=== PATIENT | male | born 1990 | race Caucasian/White ===

== ENCOUNTER 2020-01-14 16:53 | Emergency (ER) | payer SELFPAY ==
[2020-01-14] MEDS ORDERED: Lidocaine 1% 10 ML MDV INJECT ONE (17:43)
[2020-01-14] MEDS ORDERED: Cephalexin 500 MG Cap PO ONE (18:35)
--- NOTE | 2020-01-14 18:38 | EDM.PDOC ---
ED HPI GENERAL MEDICAL PROBLEM - General Chief Complaint: General Stated Complaint: PIECE OF WOOD STUCK IN LF ARM Time Seen by Provider: 01/14/20 17:33 Source of Information: Reports: Patient, RN Notes Reviewed - History of Present Illness INITIAL COMMENTS - FREE TEXT/NARRATIVE: working with a beehive, somehow got a wooden splinter into L forearm, unable to get it out. Left Middle Arm Pain Score (Numeric/FACES): 4 - Related Data Allergies Allergy/AdvReac Type Severity Reaction Status Date / Time No Known Allergies Allergy Verified 01/14/20 17:32 Home Meds: Home Meds atenoloL [Atenolol] 25 mg PO BID 01/14/20 [History] cephALEXin [Cephalexin] 500 mg PO QID #20 capsule 01/14/20 [Rx] Past Medical History Cardiovascular History: Reports: Hypertension, Other (See Below) Other Cardiovascular History: leaky heart valve Social & Family History - Tobacco Use Smoking Status *Q: Current Every Day Smoker Years of Tobacco use: 8 Packs/Tins Daily: 0.5 - Caffeine Use Caffeine Use: Reports: Coffee, Soda - Recreational Drug Use Recreational Drug Use: No ED ROS GENERAL - Review of Systems Review Of Systems: See Below HEENT: Reports: No Symptoms Respiratory: Reports: No Symptoms Cardiovascular: Reports: No Symptoms GI/Abdominal: Reports: No Symptoms Musculoskeletal: Reports: Other (Mild discomfort area of wooden splinter) Neurological: Denies: Numbness, Tingling, Weakness ED EXAM, GENERAL - Physical Exam Exam: See Below General Appearance: Alert, No Apparent Distress Head: Atraumatic Respiratory/Chest: No Respiratory Distress Extremities: Other (mild fulness to antecubital area of L forearm, fullness palpable lateral to entrance point visible) Neurological: Alert, No Motor/Sensory Deficits Skin Exam: Warm, Dry Foreign Body Removal - Pre-Procedure Indication: wooden splinter broke off antecubital area L forearm Performing Doctor:: Edwin Hand - Post-Procedure Findings:: FB palpable SQ tissue of L antecubital area L forearm, entrance wound visible, I did have to open this up with a scalpal after local anesth. with 1 % lidocaine. 2 cm long wooden splinter located, removed without difficulty. 4 ethilons sutures used to close the wound. Complications:: No Course - Vital Signs Last Recorded V/S: Last Vital Signs Temp 98.7 F 01/14/20 17:27 Pulse 68 01/14/20 17:27 Resp 20 01/14/20 17:27 BP 133/86 01/14/20 17:27 Pulse Ox 99 01/14/20 17:27 - Orders/Labs/Meds Meds: Medications Discontinued Medications Generic Name Dose Route Start Last Admin Trade Name Parmjit PRN Reason Stop Dose Admin Cephalexin 500 mg 01/14/20 18:35 01/14/20 18:45 Keflex PO 01/14/20 18:36 500 mg ONETIME ONE Administration Lidocaine HCl 10 ml 01/14/20 17:43 01/14/20 17:48 Xylocaine 1% INJECT 01/14/20 17:44 10 ml ONETIME ONE Administration - Re-Assessments/Exams Free Text/Narrative Re-Assessment/Exam: 01/15/20 13:56 was able to find a remove wooden splinter as documented, it was in the sub cut. tissue, had to incise down about 1/4 to 1/2 cm to find it. Departure - Departure Time of Disposition: 18:36 Disposition: Home, Self-Care 01 Condition: Fair Clinical Impression: Foreign body (FB) in soft tissue - Discharge Information Prescriptions: cephALEXin [Cephalexin] 500 mg PO QID #20 capsule Referrals: PCP,None [Primary Care Provider] - Forms: ED Department Discharge Additional Instructions: cephalexin 500 mg 4 times daily for 5 days or until gone. Prescription has been sent to [facility]. Stitches out in about 10 days, have rechecked any sign of infection. Sepsis Event Note (ED) - Evaluation Sepsis Screening Result: No Definite Risk
== END 2020-01-14 18:50 | disposition home or self-care (01) ==
LOC: JD.ED 16:53
DX: S50.852A Superficial foreign body of left forearm, initial encounter (principal); I10 Essential (primary) hypertension; F17.210 Nicotine dependence, cigarettes, uncomplicated; W45.8XXA Other foreign body or object entering through skin, initial encounter
CPT/HCPCS: 10120; 99283; A9270; J2001; 99282

== ENCOUNTER 2022-11-02 08:11 | Day surgery (SDC) | payer BC ==
[2022-11-02 09:02] LABS: BASOPHILS ABSOLUTE AUTO 0.03 K/mm3 (0.01-0.08); BASOPHILS PERCENT AUTO 0.4 % (0.1-1.2); EOSINOPHILS ABSOLUTE AUTO 0.36 K/mm3 (0.04-0.54); EOSINOPHILS PERCENT AUTO 4.9 (0.8-7.0); HEMATOCRIT 50.1 % (40.1-51.0); HEMOGLOBIN 17.3 gm/dl (13.7-17.5); IMMATURE GRAN ABSOLUTE AUTO 0.06 K/mm3 (0.00-0.10); IMMATURE GRAN PERCENT AUTO 0.8 % (<=1.0); LYMPHOCYTES ABSOLUTE AUTO 2.49 K/mm3 (1.32-3.57); LYMPHOCYTES PERCENT AUTO 34.2 % (21.8-53.1); MEAN CORPUSCULAR HEMOGLOBIN 32.2 pg (25.7-32.2); MEAN CORPUSCULAR HGB CONC 34.5 g/dl (32.2-35.5); MEAN CORPUSCULAR VOLUME 93.1 fl (79.0-92.2); MEAN PLATELET VOLUME 9.7 fl (9.4-12.3); MONOCYTES PERCENT AUTO 8.2 % (5.3-12.2); NEUTROPHILS ABSOLUTE AUTO 3.74 K/mm3 (1.78-5.38); NEUTROPHILS PERCENT AUTO 51.5 % (34.0-67.9); PLATELET COUNT,PLT 287 K/mm3 (163-337); RED BLOOD CELL COUNT 5.38 M/mm3 (4.63-6.08); WHITE BLOOD CELL COUNT,WBC 7.28 K/mm3 (4.23-9.07)
[2022-11-02 09:15] LABS: INR 0.95; PROTHROMBIN TIME 10.2 SECONDS (9.7-12.0)
[2022-11-02 09:19] LABS: APPEARANCE,URINE CLEAR (Clear); BILIRUBIN,URINE NEGATIVE (Negative); COLOR,URINE YELLOW (Yellow); GLUCOSE,URINE NEGATIVE (Negative); KETONES,URINE NEGATIVE (Negative); LEUKOCYTE ESTERASE,URINE NEGATIVE (Negative); NITRITE,URINE NEGATIVE (Negative); OCCULT BLOOD,URINE NEGATIVE (Negative); PROTEIN,URINE TRACE (Negative); UROBILINOGEN,URINE 0.2 (0.2-1.0)
[2022-11-02 09:30] LABS: A/G RATIO 0.9 (1-2); BILIRUBIN TOTAL 0.5 mg/dL (0.2-1.0); BUN/CREATININE RATIO 15.5 (14-18); CALCIUM 9.4 mg/dL (8.5-10.1); CKMB 2.8 ng/ml (0-3.6); CREATININE 1.1 mg/dL (0.7-1.3); EST CRCL DRUG DOSING (CG) 106.94 mL/min; PROTEIN TOTAL,TP 8.4 g/dl (6.4-8.2)
[2022-11-02 10:03] LABS: RBC,URINE 0-5 /hpf (0-5)
[2022-11-02 10:04] LABS: BACTERIA,URINE FEW /hpf (FEW); EPITHELIAL CELLS,URINE NOT SEEN /hpf (0-5); MUCUS,URINE MANY /hpf (FEW); WBC,URINE NOT SEEN /hpf (0-5)
[2022-11-02] MEDS ORDERED: Ondansetron 4 MG/2 ML SDV IVPUSH PRN (12:06)
[2022-11-02] MEDS ORDERED: fentaNYL 100 MCG/2 ML SDV IVPUSH PRN (12:06)
[2022-11-02] MEDS ORDERED: HYDROmorphone 0.5 MG/0.5 ML Syringe IVPUSH PRN (12:06)
[2022-11-02] MEDS ORDERED: Propofol 200 MG/20 ML SDV ONE (12:14)
[2022-11-02] MEDS ORDERED: Lidocaine 1% 2 ML ONE (12:14)
[2022-11-02] MEDS ORDERED: Rocuronium 50 MG/5 ML Vial ONE (12:14)
[2022-11-02] MEDS ORDERED: fentaNYL 250 MCG/5 ML SDV ONE (12:14)
[2022-11-02] MEDS ORDERED: Ketorolac 30 MG/ML SDV ONE (12:15)
[2022-11-02] MEDS ORDERED: Ondansetron 4 MG/2 ML SDV ONE (12:15)
[2022-11-02] MEDS ORDERED: Bupivacaine 0.5%/EPINEPHrine 1:200,000 50 ML MDV ONE (12:49)
[2022-11-02] MEDS ORDERED: Lidocaine 1% 30 ML SDV ONE (12:49)
[2022-11-02] MEDS ORDERED: ceFAZolin 2 GM Vial ONE ×2 (13:43)
[2022-11-02] MEDS ORDERED: Sugammadex Sodium 200 MG/2 ML VIAL ONE (13:56)
[2022-11-02] MEDS ORDERED: oxyCODONE 5 MG Tab PO ONE (15:09)
== END 2022-11-02 15:40 | disposition home or self-care (01) ==
LOC: JD.ED 08:11 → JD.SDS 10:06
PROVIDERS: ATTEND Surgery
DX: K42.0 Umbilical hernia with obstruction, without gangrene (principal); I10 Essential (primary) hypertension; F17.210 Nicotine dependence, cigarettes, uncomplicated; E66.01 Morbid (severe) obesity due to excess calories; Z79.899 Other long term (current) drug therapy; Z79.82 Long term (current) use of aspirin; Z68.41 Body mass index [BMI] 40.0-44.9, adult
CPT/HCPCS: 36415; 49614; 71045; 74176; 80053; 81001; 82553; 84484; 85025; 85610; 85730; 86850; 86900; 86901; 93005; A9270; J0690; J1885; J2405; J2704; J3010; J3490; 99284

== ENCOUNTER 2023-02-11 22:56 | Emergency (ER) | payer BC | END 2023-02-11 23:20 | disposition left against medical advice (07) | LOC: JD.ED 22:56 | DX: Z53.21 Procedure and treatment not carried out due to patient leaving prior to being seen by health care provider (principal) ==

== ENCOUNTER 2023-10-03 04:53 | Emergency (ER) | payer BC ==
[2023-10-03] MEDS: Sodium Chloride 0.9% 10 ML Syringe FLUSH PRN (05:11)
[2023-10-03 05:43] LABS: BASOPHILS PERCENT AUTO 0.6 % (0.0-1.0); EOSINOPHILS ABSOLUTE AUTO 0.2 K/mm3 (0.0-0.4); EOSINOPHILS PERCENT AUTO 4.6 % (0.0-6.0); HEMATOCRIT 47.8 % (42.0-52.0); HEMOGLOBIN 16.2 gm/dl (14.0-18.0); IMMATURE GRAN ABSOLUTE AUTO 0.02 K/mm3 (0.00-0.05); IMMATURE GRAN PERCENT AUTO 0.4 % (0.0-0.4); LYMPHOCYTES ABSOLUTE AUTO 2.1 K/mm3 (1.0-4.8); LYMPHOCYTES PERCENT AUTO 40.2 % (24.0-44.0); MEAN CORPUSCULAR HEMOGLOBIN 31.6 pg (28.0-32.0); MEAN CORPUSCULAR HGB CONC 33.9 g/dl (32.0-36.0); MEAN CORPUSCULAR VOLUME 93.4 fl (83.0-99.0); MEAN PLATELET VOLUME 9.3 fl (9.4-12.4); MONOCYTES ABSOLUTE AUTO 0.4 K/mm3 (0.0-0.8); MONOCYTES PERCENT AUTO 6.9 % (0.0-8.0); NEUTROPHILS ABSOLUTE AUTO 2.5 K/mm3 (1.8-7.7); NEUTROPHILS PERCENT AUTO 47.3 % (41.0-71.0); PLATELET COUNT,PLT 201 K/mm3 (150-400); RED BLOOD CELL COUNT 5.12 M/mm3 (4.52-5.90); WHITE BLOOD CELL COUNT,WBC 5.22 K/mm3 (3.9-11.3)
[2023-10-03 05:59] LABS: A/G RATIO 0.8 (1-2); ALBUMIN 3.2 g/dl (3.4-5.0); ANION GAP 10.9 (5-15); BILIRUBIN TOTAL 0.4 mg/dL (0.2-1.0); BUN/CREATININE RATIO 16.7 (14-18); C-REACTIVE PROTEIN 0.39 mg/dL (<0.30); CALCIUM 8.5 mg/dL (8.5-10.1); CREATININE 0.9 mg/dL (0.7-1.3); EST CRCL DRUG DOSING (CG) 140.65 mL/min; MAGNESIUM 1.9 mg/dL (1.8-2.4); POTASSIUM,K 3.9 mEq/L (3.5-5.1)
[2023-10-03] MEDS: Albuterol 6.7 GM Inhaler INH ONE (07:35)
== END 2023-10-03 07:39 | disposition home or self-care (01) ==
LOC: JD.ED 04:53
DX: B34.9 Viral infection, unspecified (principal); R07.89 Other chest pain; I10 Essential (primary) hypertension; E66.9 Obesity, unspecified; Z79.899 Other long term (current) drug therapy; Z79.82 Long term (current) use of aspirin; Z68.35 Body mass index [BMI] 35.0-35.9, adult
CPT/HCPCS: 36415; 71046; 80053; 83735; 84484; 85025; 86140; 93005; 99285; A9270; J3490